=== PATIENT | female | born 1985 | race Caucasian/White ===

== ENCOUNTER 2021-08-14 19:19 | Emergency (ER) | payer SELFPAY ==
[2021-08-14] MEDS ORDERED: Tetracaine HCl/PF 0.5% 4 ML Bottle EYELF ONE (20:16)
--- NOTE | 2021-08-14 20:39 | EDM.PDOC ---
ED HPI GENERAL MEDICAL PROBLEM - General Chief Complaint: ENT Problem Stated Complaint: SWOLLEN EYE Time Seen by Provider: 08/14/21 19:57 Source of Information: Reports: Patient History Limitations: Reports: No Limitations - History of Present Illness INITIAL COMMENTS - FREE TEXT/NARRATIVE: HISTORY AND PHYSICAL: History of present illness: The patient is a 35-year-old female who presents to the emergency department with complaints of left eye swelling, redness, and clear drainage for approximately 24 hours. The patient states that she is a contact wearer and after having her contacts in for an appropriate time her eye became red with clear drainage. The patient states that there is no itching and she does have some mild pain. She is unsure as any vision change as her vision is normally blurry without her contacts. The patient states that she does not feel any difference in vision. The patient has attempted to flush her eyes and use warm compresses but this does not help. Prior to this episode the patient has been otherwise healthy. Patient denies any fever, chills, headache, change in vision, syncope or near syncope. Denies any chest pain, back pain, shortness of breath or cough. Denies any abdominal pain, nausea, vomiting, diarrhea, constipation or dysuria. Has not noted any blood in urine or stool. Patient has been eating and drinking appropriately. Review of systems: As per history of present illness and below otherwise all systems reviewed and negative. Past medical history: As per history of present illness and as reviewed below otherwise noncontributory. Surgical history: As per history of present illness and as reviewed below otherwise noncontributory. Social history: See social history for further information Family history: As per history of present illness and as reviewed below otherwise noncontributory. Physical exam: General: Well developed and well nourished. Alert and orientated x 3. Nontoxic in appearance and in no acute distress. Vital signs are stable and have been reviewed by me. Nursing notes were reviewed. HEENT: Atraumatic, normocephalic, pupils equal and reactive bilaterally, negative for conjunctival pallor or scleral icterus, conjunctivitis with green drainage, mucous membranes moist, TMs normal bilaterally, throat clear, neck supple, nontender, trachea midline. No drooling or trismus noted. No meningeal signs. No hot potato voice noted. Lungs: Clear to auscultation bilaterally. No wheezes, rales, or rhonchi. Chest nontender. Normal work of breathing, no accessory muscles used. Heart: S1S2, regular rate and rhythm without overt murmur, gallops, or rubs. No JVD. No peripheral edema Abdomen: Soft, nondistended, nontender. Normoactive bowel sounds. Negative for masses or costovertebral tenderness. Skin: Intact, warm, dry. No lesions or rashes noted. Hematologic: No petechiae or purpra. Mucosa appropriate color and normal nail bed color and refill. Extremities: Atraumatic, moves all extremities per self without difficulty or deficits, negative for cords or calf pain. Neurovascular unremarkable. Neuro: Awake, alert, oriented. Cranial nerves II through XII unremarkable. Cerebellum unremarkable. Motor and sensory unremarkable throughout. Exam nonfocal. Psychiatric: Mood and affect are appropriate. Normal thought process. Answering questions appropriately. Notes: *This patient was seen and evaluated during the 2019 SARS-CoV-2 novel coronavirus pandemic period. Community viral transmission is ongoing at time of this encounter and the emergency department is operating under pandemic response procedures. As stated above the patient is a 35-year-old female who presents to the emergency department with a swollen left eye. The eye has a conjunctivitis appearance with some green drainage and some matting at the corners. I known the patient's left eye with tetracaine and did a fluorescein/Delgado light test which was negative for any abrasion. As the patient is a contact wearer I have advised her to not wear the contacts until the infection has cleared. I advised her not to use the same contact again. I will prescribe ciprofloxacin 0.3% ophthalmic drops 2 drops 4 times a daily for 7 days. I have talked with the patient about today's findings, in addition to providing specific details for plan of care. Reassessment at the time of disposition demonstrates that the patient is in no acute distress. The patient is stable for discharge, counseling was provided and we discussed in great detail signs and symptoms that would prompt them to return to the Emergency Department. Medication, follow up and supportive care measures were reviewed and discussed. Voices understanding and is agreeable to plan of care. Denies any further questions or concerns at this time. Diagnostics: Fluorescein eye stain Therapeutics: Tetracaine ophthalmic drops Prescription:ciprofloxacin 0.3% ophthalmic drops 2 drops 4 times a daily for 7 days Impression: Conjunctivitis Plan: 1. You were evaluated today on an emergent basis. Your plaints of your left eye redness and drainage was evaluated and found to be conjunctivitis related to your contact wearing. I have prescribed ciprofloxacin 0.3% ophthalmic drops 2 drops 4 times a daily for 7 days which was sent to [place] pharmacy. We did not have this in our ER. As we talked about you need to establish yourself with an ophth almologist in the [place] area. I would recommend you follow-up with wide after your antibiotic is completed to ensure there is been no damage to your eyesight. You should not wear a contact in the eye while taking the antibiotic. Do not reuse the same contact lens that you use previously. You would to have increased pain or decreased vision please return to the emergency department. 2. You can alternate Tylenol and ibuprofen as needed for pain and fever management. 3. We encourage you to follow up with your primary care provider and/or recommended specialist in the next few days for re-evaluation and further care/management. 4. If your symptoms should worsen, new symptoms develop or any of the signs and symptoms we discussed should arise please return to the emergency room or call 911 (if needed). Definitive disposition and diagnosis as appropriate pending reevaluation and review of above. - Related Data Allergies Allergy/AdvReac Type Severity Reaction Status Date / Time No Known Allergies Allergy Verified 08/14/21 19:56 Home Meds: Home Meds Ciprofloxacin [Ciloxan 0.3% [facility] Soln] 2 drop EYELF QID 7 Days #5 ml 08/14/21 [Rx] Past Medical History - Past Surgical History HEENT Surgical History: Reports: Tonsillectomy Social & Family History - Tobacco Use Tobacco Use Status *Q: Never Tobacco User - Recreational Drug Use Recreational Drug Use: No ED ROS ENT - Review of Systems Review Of Systems: Comprehensive ROS is negative, except as noted in HPI. ED EXAM, ENT - Physical Exam Exam: See Below (See dictation) Course - Vital Signs Last Recorded V/S: Last Vital Signs Temp 98.2 F 08/14/21 19:56 Pulse 88 08/14/21 20:49 Resp 18 08/14/21 20:49 BP 109/71 08/14/21 20:49 Pulse Ox 97 08/14/21 20:49 - Orders/Labs/Meds Meds: Medications Discontinued Medications Generic Name Dose Route Start Last Admin Trade Name Wanda PRN Reason Stop Dose Admin Tetracaine HCl 5 ml 08/14/21 20:16 08/14/21 20:32 Tetracaine Hcl/Pf 0.5% 4 Ml Bottle EYELF 08/14/21 20:17 4 dose ASDIRECTED ONE Administration Departure - Departure Time of Disposition: 20:38 Disposition: Home, Self-Care 01 Condition: Good Clinical Impression: Conjunctivitis Qualifiers: Conjunctivitis type: acute Acute conjunctivitis type: unspecified Laterality: left Qualified Code(s): H10.32 - Unspecified acute conjunctivitis, left eye - Discharge Information *PRESCRIPTION DRUG MONITORING PROGRAM REVIEWED*: Not Applicable *COPY OF PRESCRIPTION DRUG MONITORING REPORT IN PATIENT HIPOLITO: Not Applicable Prescriptions: Ciprofloxacin [Ciloxan 0.3% Ophth Soln] 2 drop EYELF QID 7 Days #5 ml Referrals: PCP,None [Primary Care Provider] - Forms: ED Department Discharge Additional Instructions: The following information is given to patients seen in the emergency department who are being discharged to home. This information is to outline your options for follow-up care. We provide all patients seen in our emergency department with a follow-up referral. The need for follow-up, as well as the timing and circumstances, are variable depending upon the specifics of your emergency department visit. If you don't have a primary care physician on staff, we will provide you with a referral. We always advise you to contact your personal physician following an emergency department visit to inform them of the circumstance of the visit and for follow-up with them and/or the need for any referrals to a consulting specialist. The emergency department will also refer you to a specialist when appropriate. This referral assures that you have the opportunity for follow-up care with a specialist. All of these measure are taken in an effort to provide you with optimal care, which includes your follow-up. Under all circumstances we always encourage you to contact your private physician who remains a resource for coordinating your care. When calling for follow-up care, please make the office aware that this follow-up is from your recent emergency room visit. If for any reason you are refused follow-up, please contact the [facility] Emergency Department at and asked to speak to the emergency department charge nurse. [facility] [address] [place] [address] [facility] [address] [place] [address] Plan: 1. You were evaluated today on an emergent basis. Your plaints of your left eye redness and drainage was evaluated and found to be conjunctivitis related to your contact wearing. I have prescribed ciprofloxacin 0.3% ophthalmic drops 2 drops 4 times a daily for 7 days which was sent to [place] pharmacy. We did not have this in our ER. As we talked about you need to establish yourself with an egg breaker in the [place] area. I would recommend you follow-up with wide after your antibiotic is completed to ensure there is been no damage to your eyesight. You should not wear a contact in the eye while taking the antibiotic. Do not reuse the same contact lens that you use previously. You would to have increased pain or decreased vision please return to the emergency department. 2. You can alternate Tylenol and ibuprofen as needed for pain and fever management. 3. We encourage you to follow up with your primary care provider and/or recommended specialist in the next few days for re-evaluation and further care/management. 4. If your symptoms should worsen, new symptoms develop or any of the signs and symptoms we discussed should arise please return to the emergency room or call 911 (if needed). Sepsis Event Note (ED) - Evaluation Sepsis Screening Result: No Definite Risk
== END 2021-08-14 20:50 | disposition home or self-care (01) ==
LOC: MW.ED 19:19
DX: H10.32 Unspecified acute conjunctivitis, left eye (principal)
CPT/HCPCS: 99282